=== PATIENT | female | born 1980 | race Hispanic/Latino ===

== ENCOUNTER 2022-05-03 14:03 | Emergency (ER) | payer SELFPAY ==
[~2022-05-03] VITALS: Ht 162.6 cm; Wt 67.6 kg
[2022-05-03] MEDS ORDERED: ONDANSETRON HCL 4 MG ORAL DISINTEGRATING TAB PO ONE (14:15)
[2022-05-03] MEDS ORDERED: ONDANSETRON ODT4 MG PO (14:21)
== END 2022-05-03 16:33 | disposition home or self-care (01) ==
LOC: ER 14:09
DX: R11.2 Nausea with vomiting, unspecified (principal); F17.210 Nicotine dependence, cigarettes, uncomplicated
CPT/HCPCS: 99283; Q0162